=== PATIENT | female | born 2000 | race Caucasian/White ===

== ENCOUNTER 2025-04-28 20:55 | Emergency (ER) | payer OTHER, SELFPAY ==
[2025-04-28 21:00] VITALS: BP 111/69; PULSE 94; RESP 16; TEMP 36.7; O2SAT 96; BMI 20.5
--- OUTSIDE RECORDS SUMMARY | 2025-04-28 21:12 | XMS_ITS | Referral Summary ---
Author Organization [facility] [facility] Address [address] [place] [id number] Care Team Providers Care Beauty Consultant Name Role Phone Christy PATTON DO, Joseph James Primary Care Provi jett Allergies Active Allergy Reactions Criticality Noted Date Comments Serotonin Reuptake Inhibitors (Ssris) Hallucination 03/24/2021 Medications levonorgestrel- ethinyl estradiol (AVIANE) 0.1-20 MG-MCG per tablet Take 1 tablet by mouth Daily. 28 tablet 3 1 Active atoMOXetine (STRATTERA) 40 mg capsule Take 1 capsule by mouth Daily. 30 capsule 3 1 Active Additional Information Patient not taking.Reported on 02/16/2022 cyanocobalamin (VITAMIN B-12) 1,000 mcg tablet Take 1 tablet by mouth Daily. 90 tablet 3 1 Active Additional Information Patient not taking.Reported on 02/16/2022 HYDROcodone-benigno taminophen (NORCO) 5-325 mg per tabletIndicatio ns:Closed fracture of base of fifth metatarsal bone of right foot Take 1 tablet by mouth every 6 hours as needed. 20 tablet 2 Active Additional Information Patient not taking.Reported on 02/16/2022 Active Problems Problem Noted Date Diagnosed Date Hirsutism 11/08/2020 Assessment & Plan (11/08/2020 3:11 PM MST): Patient thinks she has PCOS Will check labs and start oral contraceptives Contraception management 11/08/2020 Assessment & Plan (11/08/2020 3:13 PM MST): Contraception Plan: Start pills as directed Take every day at the same time of the day Use condoms to protect from STD's Major depressive disorder 10/07/2020 Assessment & Plan (10/07/2020 12:39 PM [facility]): Depression Plan: Possible bipolar disorder Referral to Viky vázquez check drug scree today Seeking therapeutic counseling with a professional therapist has been shown to help in many cases. You should stay active, exercise daily, outdoors if weather permits. Surround yourself with positive people, music, television. Keep your follow up appointments here in the clinic. If you develop side effects to medications or start to feel worse call the office immediately or go to ER. Exposure to communicable disease 10/07/2020 Assessment & Plan (10/07/2020 12:35 PM MST): Patient is sexually active Asking for STD testing Skin lesion of left leg 01/18/2019 Assessment & Plan (01/18/2019 10:50 AM MDT): Skin lesion of left upper thigh Plan: Refer to Dr. Nugent Acne vulgaris 08/08/2018 Assessment & Plan (08/08/2018 2:48 PM MDT): She would benefit from restarting her Accutane. Will start the enrolment process and start her on OCPs. Urine testing today. 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 We discussed increasing her fluid intake to half-strength Gatorade and several glasses of water per day and decreasing her caffeine intake slowly. Takes no other medications and has not had any other illnesses recently. Resolved Problems Problem Noted Date Diagnosed Date Resolved Date Folliculitis 05/16/2018 05/10/2019 Assessment & Plan (05/16/2018 3:59 PM MDT): Possible folliculitis Skin lesion (blister-like recurring lesion to left upper thigh) Plan: See Dr. Nugent Wash with antibacterial soap Avoid shaving for now to allow to heal Simple chronic bronchitis 10/19/2017 Assessment & Plan (10/21/2017 11:55 AM [facility]): Persistent Bronchitis and cough for >2 months Non-compliant with antibiotics Plan: Start Z-Pack Add Mucinex 600 mg twice a day Increase water intake Cough suppressant (tessalon) Use inhalers (Qvar) given at last visit twice a day Follow up if not improved in 5-7 days for possible CXR ER precautions if worsening symptoms Acute viral bronchitis 07/21/201508/08 Assessment & Plan (07/21/2015 5:00 PM MDT): No signs of pneumonia or suggestion of other infectious disease is likely sequelae of acute viral bronchitis with extended coughing. Without signs of tachypnea chest pain wheezing fever shortness of breath and fever is less likely a pneumonia. Recommend patient try Mucinex over the counter and remain active plenty of fluids and other supportive care measures. No Antibiotics indicated at this time. Viral gastroenteritis 12/20/20142018 Assessment & Plan (12/20/2014 8:58 PM MDT): We will treat with antiemetic and antispasmodic medications patient will follow simple clear liquid diet and increase as tolerated. Mother and child are cautioned regarding dehydration and need for follow-up if not clinically improving with current medications Immunizations Immunization Administration Dates Next Due COVID-19 (PFIZER) MONOVALENT 12 YRS+ (ORIGINAL) 06/20/2021,05/28/2021 DTP (PED) 01/26/2006, 2,05/17/2001,03/17,01/31/2001 HEP A, 2 DOSE (PED) 08/31/2006,01/26/2006 HEP B (PED,ADOLESCENT) 3 DOSE 08/10/2001, 001,01/31/2001 HIB (PRP-T), 4 DOSE (PED) 02/22/2002,04/2001,03/17/2001,01/31 HPV 9-VALENT RECOMB VACCINE IM 05/10/2019,2018 MENINGOCOCCAL CONJUGATE,MENACTRA 02/23/2019,09/06/2014 MENINGOCOCCAL SEROGROUP B (BEXSERO) 02/23/2019 MMR (M-M-R II) 2 DOSE 01/26/2006,11/04/2001 PNEUMOCOCCAL, UNSPECIFIED FORMULATION 11/04/2001 ,08/10/2001,05/17/2001 POLIO (IPV), 4 DOSE 01/26/2006, 1,03/17/2001,01/31 TDAP, (ADOL/ADULT) 06/19/2014 VARICELLA (VARIVAX) 2 DOSE 06/19/2014,11/04/2001 Social History Tobacco Use Types Packs/Day Years Used Date Smoking Tobacco: Never Smokeless Tobacco: Never Tobacco Cessation:Counseling Given: Yes Alcohol Use Standard Drinks/Week Comments Yes 0 (1 standard drink = 0.6 oz pur e alcohol) Vaping Answer Date Recorded Vaping Use Status Former user 03/24/2021 Alcohol Use History Answer Date Recorde d Alcohol use Yes 01/15/2023 Alcohol/week (standard drinks) Not on file 0 01/15/2023 Comments No Sex and Gender Information Value Date Recorded Sex Assigned at Not on file Legal Sex Female 6:29 PM PDT Gender Identity Not on file Sexual Orientation Not on file Last Filed Vital Signs Vital Sign Reading Time Taken Comments Blood Pressure 110/60 02/16/2022 11:08 AM MDT Pulse 83 02/16/2022 11:08 AM MDT Temperature 36.9 C (98.4 F) 02/16/2022 11:08 AM MDT Respiratory Rate 18 02/16/2022 11:08 AM MDT Oxygen Saturation 98% 02/16/2022 11:08 AM MDT Inhaled Oxygen Concentration - - Weight 63.5 kg (140 lb) 02/16/2022 11:08 AM MDT Height 172.7 cm (5' 8 ) 02/16/2022 11:08 AM MDT Body Mass Index 21.29 02/16/2022 11:08 AM MDT Plan of Treatment Not on file Procedures Procedure Name Priority Date/Time Associated Diagnosis Comments C. TRACHOMATIS AND N. GONORRHOEAE, NAAT (APTIMA) Routine 01/14/2021 11:15 AM MDT Dysuria HIV AG/AB, 4TH GEN, REFLEX Routine 10/07/2020 1:49 PM MST Contact with or exposure to communicable disease from Last 3 Months or Most Recently Relevant to Health Maintenance Results * C. trachomatis and N. gonorrhoeae, NAAT (APTIMA) (01/14/2021 11:15 AM MDT) Chlamydia trachomatis, RNA NOT DETECTED NOT DETECTED 01/16/2021 6:00 PM MDT [facility] Neisseria gonorrhoeae PCR NOT DETECTED NOT DETECTED 01/16/2021 6:00 PM MDT [facility] Result SEE NOTE 01/16/2021 6:00 PM MDT [facility] Comment: The analytical performance characteristics of this assay, when used to test SurePath(TM) specimens have been determined by [employer]. The modifications have not been cleared or approved by the FDA. This assay has been validated pursuant to the CLIA regulations and is used for clinical purposes. For additional information, please refer to https://education.GetLikeminds/faq/ZNZ287 (This link is being provided for information/ educational purposes only.) Urine URINE SPECIMEN / Unknown Collection / Unknown 01/14/2021 11:15 AM MDT 01/14/2021 11:15 AM MDT John Cardona PA-C MICROBIOLOGY - GENERAL [place] Final Result [facility] [address] [place] [address] * HIV AG/AB, 4th Gen, Reflex (10/07/2020 1:49 PM [facility]) HIV 1 and 2 Ab, Rapid Non-Reacti ve Non-Reacti ve 10/07/2020 2:[address] [facility] HIV-1 P24 Ag Non-Reacti ve Non-Reacti ve 10/07/2020 2:[address] [facility] Blood Venipuncture / Unknown 10/07/2020 1:49 PM [facility] 10/07/2020 1:49 PM [facility] Tiffany Pagan [employer] SUPERVISOR LAB BLOOD ORDERABLES Final Result [facility] [address] [place] [id number], [facility] [phone] from Last 3 Months or Most Recently Relevant to Health Maintenance [facility] Care Teams Beauty Consultant Relationship Specialty Start Date End Date John Harrison III, [place] [id number] PCP - General Family Medicine 07/30/18
--- OUTSIDE RECORDS SUMMARY | 2025-04-28 21:12 | XMS_ITS | Encounter Summary ---
Author Organization [facility] Address [address] [place] [address] Care Team Providers Care Handcrew Foreman Name Role Phone Christy PATTON DO, Joseph James Primary Care Provi jett Reason for Visit * Reason Comments Medication Refill Encounter Details Date Type Department Care Team (Late st Contact Info) Description 11/03/2019 Refill [facility] [address] [facility] [place] [phone] Rocío Ohara, DANIEL [address] [facility] [place] [address] Medication Refill Social History Tobacco Use Types Packs/Day Years Used Date Smoking Tobacco: Never Smokeless Tobacco: Never Alcohol Use Standard Drinks/Week Comments No 0 (1 standard drink = 0.6 oz pur e alcohol) Comments No Sex and Gender Information Value Date Recorded Sex Assigned at Not on file Legal Sex Female 6:29 PM PDT Gender Identity Not on file Sexual Orientation Not on file documented as of this encounter Plan of Treatment Not on file documented as of this encounter Visit Diagnoses Diagnosis Social anxiety disorder Social phobia documented in this encounter Additional Health Concerns Infection Onset Date Last Indicated Resolved Time Covid-19 Risk Comment:Added by Infectious Risk Screen Symptoms: Cough;Sore throat;Fever 01/10/2021 01/10/20212020 3:55 AM PDT Rule out COVID-19 01/10/2021 01/10/2021 01/10/2021 2:28 PM PDT Covid-19 Risk Comment:Added by Infectious Risk Screen Exposure: COVID-19 Symptoms: Sore throat 06/19/2021 06/19/2021 06/20/2021 3:54 AM PDT Rule out COVID-19 02/16/2022 02/16/2022 02/16/2022 10:22 AM PDT Assessment Noted Time PHQ-9 Depression Total Score: 2 05/17/20 10:00 AM PDT documented as of this encounter Care Teams Handcrew Foreman Relationship Specialty Start Date End Date John Harrison III, [address] [place] [id number] PCP - General Family Medicine 07/30/18 documented as of this encounter
[2025-04-29 00:49] LABS: Hematocrit 35.5 % (36-47); Hemoglobin 11.50 g/dL (11.27-16.99); Mean Corpuscular HGB Conc 32.4 g/dL (30-55); Mean Corpuscular Hemoglobin 31.4 pg (27-33); Mean Corpuscular Volume 97.0 fl (85-98); Nucleated Red Blood Cells % 0 %; Platelet Count 191 10^3/cmm (157-399); Red Blood Count 3.66 10^6/uL (3.85-5.65); White Blood Count 4.37 10^3/uL (3.29-11.43)
[2025-04-29 00:55] LABS: Alanine Aminotransferase 12 U/L (0-33); Albumin Level 4.8 g/dL (3.5-5.2); Alkaline Phosphatase 113 U/L (35-105); Anion Gap 14.7 (5-19); Aspartate Amino Transferase 18 U/L (0-32); Blood Urea Nitrogen 6 mg/dL (6-20); Calcium 9.7 mg/dL (8.5-10.5); Carbon Dioxide 27 mmol/L (22-29); Chloride 104 mmol/L (98-107); Creatinine Clr Calc Pharmacy 107.5596; Globulin 2.7 g/dL (1.3-4.6); Glucose 84 mg/dL (65-115); Osmolality Calculated 291 mOsm/kg (285-295); Potassium 3.7 mmol/L (3.5-5.1); Sodium 142 mmol/L (136-145); Total Protein 7.5 g/dL (6.6-8.7)
--- NOTE | 2025-04-29 00:55 | W.ED.EXTPRO ---
HPI - Extremity Problem General: Chief complaint: Extremity Problem,Nontraumatic Stated complaint: left swollen foot Time Seen by Provider: 04/29/25 00:10 Source: patient Mode of arrival: ambulatory Limitations: no limitations History of Present Illness: Patient is a 24-year-old female who presents the emergency department complaining of diffuse bug bites, and redness to her left foot. She was recently at an outdoor festival for couple of weeks, camping outdoors and states that she think she was bitten by many bugs. 1 such lesion to her foot has gotten swollen and erythematous, notes that it has been painful to. She arrives barefooted to the emergency department, she is not reporting any systemic symptoms. She does state that she came into contact with another person with staph infection. MD Complaint: extremity pain and extremity swelling Onset (ago): day(s) Pain Consistency: constant Location: left and lower extremity Associated symptoms: Deny chest pain, fever(s) or rash Related Data Previous Rx's ?Medication ?Instructions ?Recorded cephalexin 500 mg capsule 500 mg PO Q6H 5 days #20 caps 04/29/25 triamcinolone acetonide 0.5 % 1 applic topical BID #15 grams 04/29/25 topical ointment Allergies Allergy/AdvReac Type Severity Reaction Status Date / Time No Known Allergies Allergy Verified 04/28/25 21:14 Review of Systems General: Reports: 10 or more systems reviewed and unremarkable except in HPI and below Const: Denies: fever(s) or chills Card: Denies: chest pain Resp: Denies: dyspnea GI: Denies: abdominal pain, nausea, vomiting or diarrhea Musc: Reports: extremity pain and extremity swelling; Denies: joint pain Skin/Breast: Reports: pruritus, erythema, skin pain and other (Scattered bug bite); Denies: rash, skin tenderness or new lesions Neuro: Denies: headache(s) Physical Exam Const: COMMON NORMALS: no acute distress, average body habitus, patient oriented x3, no limitations, healthy appearing, alert and well nourished HENMT: COMMON NORMALS: normocephalic and atraumatic HEAD & SCALP: normocephalic and atraumatic Neck/C-Spine: COMMON NORMALS: full ROM, no lymphadenopathy, supple and no meningeal signs Resp: COMMON NORMALS: normal respiratory effort, No use of accessory muscles and clear to auscultation bilaterally AUSCULTATION: clear to auscultation bilaterally Cardio: COMMON NORMALS: regular rate and regular rhythm RATE: regular rate RHYTHM: regular rhythm Extremity: COMMON NORMALS: full ROM and capillary refill normal Neuro: COMMON NORMALS: patient oriented x3 SENSORIUM/ORIENTATION: Yes alert MENINGEAL SIGNS: Yes no meningeal signs Skin: COMMON NORMALS: no wounds and turgor normal NARRATIVE SKIN EXAM: Poor hygiene noted with her feet. Her left foot, to the dorsal aspect is erythematous and mildly edematous, however is not warm to the touch. Neurovascular intact. No significant tenderness to palpation. There are scattered lesions that appear consistent with bug bites, some with circumferential erythema that do not appear infected or draining otherwise. GENERAL SKIN EXAM: turgor normal Course Vital Signs: Vital signs: Vital Signs Temperature 98.1 F 04/28/25 21:00 Pulse Rate 94 04/28/25 21:00 Respiratory Rate 16 04/28/25 21:00 Blood Pressure 111/69 04/28/25 21:00 Pulse Oximetry 96 04/28/25 21:00 Oxygen Delivery Me thod Room Air 04/28/25 21:00 MDM - Extremity (Nontraumatic) Medical Decision Making The patient's left foot appears consistent with an early cellulitis, we will treat with Keflex to cover for MRSA. The rest of her bug bites that are evident, likely as a result of camping outdoors recently and poor hygiene in the interim, we will treat with triamcinolone. Discussed signs and symptoms to watch for at home and further home treatment and supportive care. Home hygiene was also encouraged and she will be discharged at this time. Her CBC was unremarkable. Lab Data 04/29/25 00:26 04/29/25: Laboratory Results WBC 4.37 10^3/uL (3.29-11.43) 04/29/25: RBC 3.66 10^6/uL (3.85-5.65) L 04/29/25: Hgb 11.50 g/dL (11.27-16.99) 04/29/25: Hct 35.5 % (36-47) L 04/29/25: MCV 97.0 fl (85-98) 07/20/25 00:26 MCH 31.4 pg (27-33) 04/29/25 00: MCHC 32.4 g/dL (30-55) 04/29/25 00: RDW 12.1 % (12.1-15.1) 04/29/25 00:26 Plt Count 191 10^3/cmm (157-399) 04/29/25 00:26 MPV 10.6 fL (7.4-10.4) H 04/29/25 00:26 Neut % (Auto) 53.4 % 04/29/25 00:26 Lymph % (Auto) 35.9 % 04/29/25 00:26 Woodruff % (Auto) 9.8 % 04/29/25 00:26 Eos % (Auto) 0.2 % 04/29/25 00:26 Baso % (Auto) 0.5 % 04/29/25 00:26 Neut # (Auto) 2.33 10^3/uL (1.8-7.7) 04/29/25 00:26 Lymph # (Auto) 1.6 10^3/uL (0.8-4.8) 04/29/25 00:26 Woodruff # (Auto) 0.4 10^3/uL (0.2-0.9) 04/29/25 00:26 Eos # (Auto) 0.0 10^3/uL (0.0-0.8) 04/29/25 00:26 Baso # (Auto) 0.0 10^3/uL (0.0-0.1) 04/29/25 00:26 Nucleated RBC % (auto) 0 % 04/29/25 00: Nucleated RBCs # 0.0 /100WBC 04/29/25 00:26 No radiology studies performed this visit Discharge Plan Discharge Patient Disposition: Home Clinical Impression: Cellulitis, Bug bites Condition: Stable Prescriptions: New cephalexin 500 mg capsule 500 mg PO Q6H 5 Days Qty: 20 0RF triamcinolone acetonide 0.5 % ointment 1 applic topical BID Qty: 15 0RF Discharge Orders: Discharge ED (Routine); Ordered 04/29/25 Ordered By: Tam Case Patient Instructions: Pain Management, Patient Portal & Rut Instructions Activity Restrictions/Additional Instructions: Cellulitis Discharge Instructions Diagnosis: Cellulitis of the left foot, likely secondary to insect bites, with possible Staphylococcus coinfection. Antibiotic Therapy: - Take cephalexin 500 mg by mouth every 6 hours for 5 days. - Complete the full course, even if symptoms improve before finishing the medication. - If you miss a dose, take it as soon as you remember, but do not double up on doses. Topical Therapy for Insect Bites: - Apply triamcinolone cream to other non-infected insect bites as directed to reduce itching and inflammation. - Do not apply triamcinolone to areas of active cellulitis. Home Hygiene and Wound Care: - Keep the affected foot clean and dry. - Wash the area gently with soap and water daily; pat dry with a clean towel. - Avoid soaking the foot. - Cover open or draining areas with a clean, dry bandage. Change bandages daily or if they become wet or soiled. - Wash hands thoroughly before and after touching the affected area or changing bandages. Home Treatment and Supportive Care: - Elevate the affected foot above the level of the heart as much as possible to reduce swelling and promote healing. - Rest and avoid excessive walking or standing until swelling and redness improve. - [id number] pain relievers (such as acetaminophen or ibuprofen) may be used for pain or discomfort, unless contraindicated. - Monitor for any new or worsening symptoms. Prevention and Predisposing Factors: - Address predisposing factors such as tinea pedis (athlete?s foot) or chronic edema if present. - Avoid scratching insect bites to reduce risk of further infection. When to Seek Further Care: Return to the emergency department or contact your healthcare provider immediately if any of the following occur: - Fever (temperature >38?C/100.4?F) or chills - Rapidly increasing redness, swelling, or pain in the affected foot - Development of blisters, pus, or blackened skin - Red streaks spreading from the area - New or worsening swelling of the foot or leg - Difficulty moving the foot or severe pain - Signs of an allergic reaction to the medication (rash, hives, difficulty breathing, swelling of face/lips/tongue) - No improvement or worsening of symptoms after 48?72 hours of antibiotics Follow-Up: - Schedule a follow-up appointment as directed to ensure resolution of infection. - If symptoms have not improved after 5 days of antibiotics, further evaluation and possible extension of therapy may be necessary. Additional Notes: - Blood cultures or wound cultures are not routinely needed for typical cases of cellulitis unless there are unusual risk factors or severe systemic symptoms. - Most cases of uncomplicated cellulitis respond well to oral antibiotics and supportive care. If you have any questions or concerns, contact your healthcare provider. Print Language: Israeli Coding Level of Care Code ED Urban Gardening Specialist for Gunnar Maravilla
[2025-04-29 01:06] VITALS: BP 90/58; PULSE 52; RESP 16; O2SAT 98
== END 2025-04-29 01:12 | disposition home or self-care (01) ==
PROVIDERS: Emergency Provider Physician Assistant
DX: L03.116 Cellulitis of left lower limb (principal); W57.XXXA Bitten or stung by nonvenomous insect and other nonvenomous arthropods, initial encounter
CPT/HCPCS: 80053; 85025; 99283; J9999